=== PATIENT | male | born 1970 | race Caucasian/White ===

== ENCOUNTER 2019-06-11 13:45 | Inpatient (IN) | payer BC ==
[~2019-06-11] VITALS: Ht 162.6 cm; Wt 55.7 kg
[~2019-06-11 13:45] MED LIST: ACET325T33 PO; AMIO200T4 PO; ATOR40TA68 PO; BUME1TAB PO; COU5 PO; DOCU-230 PO; ENOX60DI2 SC; FAMO20TA18 PO; FURO40TA4 PO; LEVO100T8 PO; METO5TAB58 PO; POTA20TA96 PO; SPIR50TA PO; THIA50TA7 PO; WARF2TAB PO
[2019-06-11] MEDS ORDERED: ACETAMINOPHEN 500 MG TAB ONE (19:50)
[2019-06-11] MEDS ORDERED: ACETAMINOPHEN 325 MG TAB PO PRN ×2 (20:00→20:30)
[2019-06-11] MEDS ORDERED: ONDANSETRON 4 MG INJ IV PRN ×2 (20:00→20:30)
[2019-06-11] MEDS ORDERED: DOCUSATE SODIUM 100 MG CAP PO PRN (20:30)
[2019-06-11] MEDS ORDERED: NACL 0.9% 3 ML SYG IV SCH (20:30)
[2019-06-11] MEDS ORDERED: BISACODYL (EC) 5 MG TAB PO PRN (20:30)
[2019-06-11] MEDS: AMIODARONE 200 MG TAB PO SCH (21:00)
[2019-06-11] MEDS ORDERED: BUMETANIDE 1 MG INJ IV ONE (21:00)
[2019-06-11] MEDS: POTASSIUM CHLORIDE (SR) 20 MEQ TAB PO SCH (21:42)
[2019-06-11] MEDS: DOCUSATE SODIUM 100 MG CAP PO SCH (21:42)
[2019-06-11] MEDS: ATORVASTATIN 40 MG TAB PO SCH (21:42)
[2019-06-12] VITALS (7 sets, daily range): BP systolic 90–109; BP diastolic 53–71; PULSE 52–78; RESP 18; Ht 162.6 cm; Wt 55.7 kg
[2019-06-12] MEDS ORDERED: PHYTONADIONE 10 MG in DEXTROSE 5% 50 ML IVPB ONE (06:00)
[2019-06-12] MEDS: LEVOTHYROXINE 100 MCG TAB PO SCH (07:03)
[2019-06-12] MEDS: AMIODARONE 200 MG TAB PO SCH (08:44)
[2019-06-12] MEDS: DOCUSATE SODIUM 100 MG CAP PO SCH ×2 (08:44→21:14)
[2019-06-12] MEDS: POTASSIUM CHLORIDE (SR) 20 MEQ TAB PO SCH ×2 (08:44→21:14)
[2019-06-12] MEDS ORDERED: FUROSEMIDE 40 MG INJ IV SCH (09:00)
[2019-06-12] MEDS: SPIRONOLACTONE 50 MG TAB PO SCH (09:38)
[2019-06-12] MEDS ORDERED: LIDOCAINE 1% (MPF) 5 ML VIAL ONE (17:16)
[2019-06-12] MEDS: BUMETANIDE 1 MG INJ IV SCH (17:52)
[2019-06-12] MEDS ORDERED: ENOXAPARIN 100 MG/ML SYG SC SCH (21:00)
[2019-06-12] MEDS: ATORVASTATIN 40 MG TAB PO SCH (21:14)
[2019-06-12] MEDS: ENOXAPARIN 60 MG/0.6 ML SYG SC SCH (22:09)
[2019-06-13] VITALS (7 sets, daily range): BP systolic 95–153; BP diastolic 60–85; PULSE 52–87; RESP 17–18
[2019-06-13] MEDS: BUMETANIDE 1 MG INJ IV SCH ×2 (06:39→17:54)
[2019-06-13] MEDS: LEVOTHYROXINE 100 MCG TAB PO SCH (06:40)
[2019-06-13] MEDS: DOCUSATE SODIUM 100 MG CAP PO SCH ×2 (08:23→21:30)
[2019-06-13] MEDS: SPIRONOLACTONE 50 MG TAB PO SCH (08:24)
[2019-06-13] MEDS: POTASSIUM CHLORIDE (SR) 20 MEQ TAB PO SCH ×2 (08:25→21:30)
[2019-06-13] MEDS: ENOXAPARIN 60 MG/0.6 ML SYG SC SCH ×2 (08:29→21:37)
[2019-06-13] MEDS: AMIODARONE 200 MG TAB PO SCH (08:51)
[2019-06-13] MEDS ORDERED: WARFARIN 2 MG TAB PO SCH (17:00)
[2019-06-13] MEDS: ATORVASTATIN 40 MG TAB PO SCH (21:30)
[2019-06-14 03:36] VITALS: BP 94/59; PULSE 54; RESP 18
[2019-06-14] MEDS: LEVOTHYROXINE 100 MCG TAB PO SCH (06:12)
[2019-06-14 07:21] VITALS: BP 95/64; PULSE 53; RESP 17
[2019-06-14] MEDS: POTASSIUM CHLORIDE (SR) 20 MEQ TAB PO SCH ×2 (08:43→21:03)
[2019-06-14] MEDS: SPIRONOLACTONE 50 MG TAB PO SCH (08:44)
[2019-06-14] MEDS: AMIODARONE 200 MG TAB PO SCH (08:44)
[2019-06-14] MEDS: DOCUSATE SODIUM 100 MG CAP PO SCH (08:45)
[2019-06-14] MEDS: ENOXAPARIN 60 MG/0.6 ML SYG SC SCH (08:49)
[2019-06-14] MEDS: BUMETANIDE 1 MG TAB PO SCH ×2 (08:50→17:37)
[2019-06-14 11:12] VITALS: BP 114/74; PULSE 54; RESP 18
[2019-06-14 15:21] VITALS: BP 111/71; PULSE 52; RESP 18
[2019-06-14] MEDS: ATORVASTATIN 40 MG TAB PO SCH (21:03)
[2019-06-14] MEDS: FAMOTIDINE 20 MG TAB PO SCH (21:03)
[2019-06-14 23:47] VITALS: BP 93/55; PULSE 52; RESP 18
[2019-06-15 03:58] VITALS: BP 96/66; PULSE 56; RESP 18
[2019-06-15] MEDS: LEVOTHYROXINE 100 MCG TAB PO SCH (06:11)
[2019-06-15] MEDS: BUMETANIDE 1 MG TAB PO SCH ×2 (06:12→17:55)
[2019-06-15 07:37] VITALS: BP 81/55; PULSE 50; RESP 18
[2019-06-15 11:06] VITALS: BP 110/75; PULSE 58; RESP 18
[2019-06-15] MEDS: SPIRONOLACTONE 50 MG TAB PO SCH (11:08)
[2019-06-15] MEDS: AMIODARONE 200 MG TAB PO SCH (11:09)
[2019-06-15] MEDS: POTASSIUM CHLORIDE (SR) 20 MEQ TAB PO SCH ×2 (11:11→21:17)
[2019-06-15] MEDS: DOCUSATE SODIUM 100 MG CAP PO SCH (11:12)
[2019-06-15] MEDS ORDERED: LIDOCAINE 1% (MPF) 5 ML VIAL ONE (14:39)
[2019-06-15 15:30] VITALS: BP 108/66; PULSE 50; RESP 17
[2019-06-15 18:53] VITALS: BP 116/71; PULSE 57; RESP 18
[2019-06-15] MEDS: ATORVASTATIN 40 MG TAB PO SCH (21:17)
[2019-06-15] MEDS: FAMOTIDINE 20 MG TAB PO SCH (21:18)
[2019-06-15 23:56] VITALS: BP 110/64; PULSE 56; RESP 18
[2019-06-16 03:23] VITALS: BP 86/56; PULSE 52; RESP 18
[2019-06-16] MEDS: BUMETANIDE 1 MG TAB PO SCH (06:34)
[2019-06-16] MEDS: LEVOTHYROXINE 100 MCG TAB PO SCH (06:34)
[2019-06-16 07:34] VITALS: BP_SYST 89; BP_DIAS 59; BP_DIAS 9; RESP 19
[2019-06-16] MEDS: DOCUSATE SODIUM 100 MG CAP PO SCH (08:06)
[2019-06-16] MEDS: SPIRONOLACTONE 50 MG TAB PO SCH (08:07)
[2019-06-16] MEDS: AMIODARONE 200 MG TAB PO SCH (08:08)
[2019-06-16] MEDS: POTASSIUM CHLORIDE (SR) 20 MEQ TAB PO SCH (08:17)
[2019-06-16] MEDS ORDERED: ENOXAPARIN 60 MG/0.6 ML SYG SC SCH ×2 (09:00→21:00)
[2019-06-16] MEDS ORDERED: WARFARIN 5 MG TAB PO ONE (09:30)
[2019-06-16 11:16] VITALS: BP 93/61; PULSE 59; RESP 19
== END 2019-06-16 14:55 | disposition home or self-care (01) | DRG 314 ==
LOC: E/R 13:45 → TEL 20:01
PROVIDERS: ADMIT Family Medicine; ATTEND Internal Medicine
PROC: 0W993ZZ Drainage of Right Pleural Cavity, Percutaneous Approach (ICD-10-PCS; principal; 2019-06-12)
PROC: 30233K1 Transfusion of Nonautologous Frozen Plasma into Peripheral Vein, Percutaneous Approach (ICD-10-PCS; 2019-06-12)
PROC: 0W9B3ZZ Drainage of Left Pleural Cavity, Percutaneous Approach (ICD-10-PCS; 2019-06-15)
DX: I31.1 Chronic constrictive pericarditis (principal); I50.33 Acute on chronic diastolic (congestive) heart failure; J90 Pleural effusion, not elsewhere classified; I31.9 Disease of pericardium, unspecified; D63.8 Anemia in other chronic diseases classified elsewhere; E87.70 Fluid overload, unspecified; E03.9 Hypothyroidism, unspecified; E78.5 Hyperlipidemia, unspecified; I71.2 Thoracic aortic aneurysm, without rupture; I48.0 Paroxysmal atrial fibrillation; R00.1 Bradycardia, unspecified; R06.00 Dyspnea, unspecified; R91.1 Solitary pulmonary nodule; R63.4 Abnormal weight loss; Z68.21 Body mass index [BMI] 21.0-21.9, adult; Z95.2 Presence of prosthetic heart valve; Z79.01 Long term (current) use of anticoagulants
CPT/HCPCS: 32555; 36415; 36430; 71045; 71250; 76705; 76942; 80048; 80053; 80061; 80307; 81003; 82042; 82728; 82945; 83036; 83540; 83615; 83735; 83880; 84157; 84443; 85025; 85610; 85730; 86706; 86803; 86850; 86900; 86901; 87070; 87102; 87116; 87340; 88104; 88305; 89051; 93005; 93306; J1940; P9059